=== PATIENT | male | born 1980 | race Two or more races ===

== ENCOUNTER 2018-08-22 23:51 | Emergency (ER) | payer BC ==
--- NOTE | 2018-08-23 01:17 | EDM.PDOC ---
ED HPI GENERAL MEDICAL PROBLEM - General Chief Complaint: General Stated Complaint: FEELS SHAKEY Time Seen by Provider: 08/23/18 01:20 Source of Information: Reports: Patient History Limitations: Reports: No Limitations - History of Present Illness INITIAL COMMENTS - FREE TEXT/NARRATIVE: 38-year-old male presents the ED simply because he is feeling restless and somewhat agitated and unable to fall asleep. He feels shaky and trembling inside. The history suggests that he used a pre-workout supplement called BANG" in 2 different aliquots. One around noon and one around 15 or 1600 hrs. tonight. He usually takes it first thing in the morning to get him through the day. He notes it has creatine phosphate and it but he is unsure if there is any guarana or stimulants mixed in this supplement. I suspect there is some form of stimulant in the product. It appears since he took it later this afternoon that it still is on board and interfering with his ability to relax and fall asleep. He has tried to rest and fall sleep all in the ED but cannot fall asleep. Onset: Today Onset Date: 08/22/18 Onset Time: 22:00 Duration: Hour(s): (Symptomatic since around 10:00 tonight when he was trying to get ready for bed.) Location: Reports: Generalized (My sense of restlessness and tremulousness. No fever or chills.) Quality: Reports: Other Severity: Moderate (Feels anxious.) Improves with: Reports: None Worsens with: Reports: None Context: Reports: Other (Likely side effects to [id number] pre-workout supplement called BANG.). Denies: Activity, Exercise, Lifting, Sick Contact, Trauma Associated Symptoms: Reports: Malaise, Other. 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 [No Known Home Meds] 08/23/18 [History] Past Medical History - Past Surgical History Musculoskeletal Surgical History: Reports: Other (See Below) Other Musculoskeletal Surgeries/Procedures:: fracture knee, fractured collarbone Social & Family History - Family History Cardiac: Reports: High Cholesterol Endocrine/Metabolic: Reports: Diabetes, type II - Tobacco Use Smoking Status *Q: Never Smoker Second Hand Smoke Exposure: No - Caffeine Use Caffeine Use: Reports: Soda - Recreational Drug Use Recreational Drug Use: No - Living Situation & Occupation Living situation: Reports: Single Occupation: Employed ED ROS GENERAL - Review of Systems Review Of Systems: See Below Constitutional: Reports: No Symptoms HEENT: Reports: No Symptoms Respiratory: Reports: No Symptoms Cardiovascular: Reports: No Symptoms Endocrine: Reports: No Symptoms GI/Abdominal: Reports: No Symptoms : Reports: No Symptoms Musculoskeletal: Reports: Other (Feels jittery and somewhat tremulous within his muscles.) Skin: Reports: No Symptoms Neurological: Reports: Tremors, Other (Feels anxious and restless.) Psychiatric: Reports: Anxiety Hematologic/Lymphatic: Reports: No Symptoms Immunologic: Reports: No Symptoms ED EXAM, GENERAL - Physical Exam Exam: See Below Exam Limited By: No Limitations General Appearance: Alert, WD/WN, Anxious, Mild Distress Eye Exam: Bilateral Eye: Normal Inspection Throat/Mouth: Normal Inspection, Normal Lips, Normal Oropharynx Head: Atraumatic, Normocephalic Neck: Normal Inspection, Supple, Non-Tender, Full Range of Motion. No: Carotid Bruit, Lymphadenopathy (L), Lymphadenopathy (R) Respiratory/Chest: No Respiratory Distress, Lungs Clear, Normal Breath Sounds, Chest Non-Tender Cardiovascular: Normal Peripheral Pulses, Regular Rate, Rhythm, No Edema, No Gallop, No Murmur, No Rub Peripheral Pulses: 3+: Posterior Tibial (L), Posterior Tibial (R), Dorsalis Pedis (L), Dorsalis Pedis (R) GI/Abdominal: Normal Bowel Sounds, Soft, Non-Tender, No Organomegaly, No Abnormal Bruit, No Mass, Pelvis Stable Back Exam: Normal Inspection, Full Range of Motion. No: CVA Tenderness (L), CVA Tenderness (R) Extremities: Normal Inspection, Normal Range of Motion, Non-Tender Neurological: Alert, Oriented, CN II-XII Intact, Normal Cognition, Normal Gait, Normal Reflexes, No Motor/Sensory Deficits, Other (No tremors on outstretched hands at this time) Psychiatric: Normal Mood, Anxious Skin Exam: Warm, Dry, Intact, Normal Color, No Rash Course - Vital Signs Last Recorded V/S: Last Vital Signs Temp 36.6 C 08/23/18 00:25 Pulse 95 08/23/18 00:25 Resp 14 08/23/18 00:25 BP 156/100 H 08/23/18 00:25 Pulse Ox 98 08/23/18 00:25 - Orders/Labs/Meds Meds: Medications Discontinued Medications Generic Name Dose Route Start Last Admin Trade Name Casimiro PRSonny Reason Stop Dose Admin Lorazepam 1 mg 08/23/18 01:39 08/23/18 01:50 Ativan PO 08/23/18 01:40 1 mg ONETIME ONE Administration - Radiology Interpretation Free Text/Narrative:: 38-year-old male presents the ED feeling very restless and tremulous. He states that he uses a supplement called bang usually first thing in the morning that helps him get through the day. He knows that there is creatine phosphate in this product but he is not sure what else is in it. Usually takes it first thing in the morning but yesterday took it more later in the day such as noon and then some on the way back to [facility] from [place] around 5:00. When he tried to lay down to go to bed tonight he finds that he is restless and somewhat agitated and feels tremulous in his muscles. Physical exam is completely normal vital signs are normal. He appears to be quite anxious. I suspect the supplement has a stimulant in it such as guarana plus potential other agents that act to stimulate the brain. There used in pre-workout for weight lifting. Patient reassured I don't think there is anything seriously wrong and that he does not need any further investigation. Given Ativan 1 mg by mouth so that he can try and get some sleep tonight. He is to work at 8:00 this morning. Advised of course no further use of "BANG" Departure - Departure Time of Disposition: 01:40 Disposition: Home, Self-Care 01 Condition: Fair Clinical Impression: Anxiety - Discharge Information *PRESCRIPTION DRUG MONITORING PROGRAM REVIEWED*: Not Applicable *COPY OF PRESCRIPTION DRUG MONITORING REPORT IN PATIENT JULIANA: Not Applicable Instructions: Panic Attack, [id number] Referrals: PCP,Not In Area [Primary Care Provider] - Forms: ED Department Discharge Additional Instructions: Evaluation the emergency room tonight in regards to feeling somewhat shaky tremulous and restless .Unable to fall asleep. I believe this is most likely due to the amount of caffeine and perhaps the pre-workout supplement that she used throughout this afternoon called "BANG". I know this contains creatine phosphate but I also wonder if it doesn't have some guarana extract in it which is used as a pre-workout supplement. This is a stimulant and could be the cause of your feeling restless and agitated. I did not feel that you were sick in anyway or needed investigations by lab etc. I believe sleep is in order. For you 're given a tablet of Ativan 1 mg by mouth which will start to work over the next half hour to 45 minutes of allow you to relax and fall asleep. Medication will last for about 6 hours which should allow you to return to work at 8:00 this morning as planned. I would suggest not using any of the "BANG" tomorrow.
[2018-08-23] MEDS ORDERED: LORazepam 1 MG Tab PO ONE (01:39)
== END 2018-08-23 01:50 | disposition home or self-care (01) ==
LOC: JD.ED 23:51
DX: F41.9 Anxiety disorder, unspecified (principal)
CPT/HCPCS: 99283; A9270